=== PATIENT | male | born 1950 | race Caucasian/White ===

== ENCOUNTER → 2017-06-06 | Outpatient (CLI) | payer OTHER, BC ==
[~2017-06-06] MED LIST: AMOX500C3 PO; ASPI81TA28 PO; ATOR-24 PO; BYTI10 SC; CHOLCAP5 PO; CLC6 PO; FURO-85 PO; GLC/500 PO; GLIP-197 PO; HYDR-3419 PO; LISI-461 PO; MAGN400T6 PO; METF-384 PO; METO100T14 PO; MULT-506 PO; NTRGSL/4 UT; POTA-335 PO; PRLSR20 PO; SILD100T PO; VITA400C15 PO; WARF4TAB8 PO; lovenox
[2017-06-06 12:15] LABS: MEAN CELL VOLUME 96.3 fL (80-100); MEAN CORPUSCULAR HEMOGLOBIN 32.8 pg (25-34); MEAN CORPUSCULAR HGB CONC 34.1 g/dl (32-36); MEAN PLATELET VOLUME 10.2 fL (7.4-10.4); PLATELET COUNT 149 K/uL (130-400); RED BLOOD COUNT 4.05 M/uL (4.7-6.1); WHITE BLOOD COUNT 6.55 K/uL (4.8-10.8)
[2017-06-06 13:09] LABS: ALT/SGPT 25 U/L (12-78); AST/SGOT 23 U/L (15-37); BLOOD UREA NITROGEN 39 mg/dl (7-18); BUN/CREATININE RATIO 20.3 (10-20); CALCIUM 9.2 mg/dl (8.5-10.1); CARBON DIOXIDE 25 mmol/L (21-32); CHLORIDE 107 mmol/L (98-107); GLUCOSE 223 mg/dl (70-99); MAGNESIUM 2.1 mg/dl (1.8-2.4); SODIUM 138 mmol/L (136-145)
[2017-06-06 13:12] LABS: CHOLESTEROL 128 mg/dl (0-200); CHOLESTEROL/HDL RATIO 3.7; HDL CHOLESTEROL 35 mg/dl; LDL CHOLESTEROL CALCULATED 14 mg/dl; TRIGLYCERIDES 393 mg/dl (0-150); VERY LOW DENSITY LIPOPROT CALC 79 mg/dl
== END | disposition home or self-care (01) ==
LOC: C.LAB1850 10:14
PROVIDERS: ATTEND Internal Medicine Cardiovascular Disease
DX: I10 Essential (primary) hypertension (principal); I42.9 Cardiomyopathy, unspecified; Z79.01 Long term (current) use of anticoagulants; I25.10 Atherosclerotic heart disease of native coronary artery without angina pectoris; I50.22 Chronic systolic (congestive) heart failure; E83.42 Hypomagnesemia

== ENCOUNTER → 2017-10-26 | Outpatient (CLI) | payer OTHER, BC ==
[2017-10-26 12:31] LABS: HEMATOCRIT 40.6 % (42-52); HEMOGLOBIN 14.4 g/dL (14.0-18.0); MEAN CELL VOLUME 96.2 fL (80-100); MEAN CORPUSCULAR HEMOGLOBIN 34.1 pg (25-34); MEAN CORPUSCULAR HGB CONC 35.5 g/dl (32-36); MEAN PLATELET VOLUME 10.6 fL (7.4-10.4); PLATELET COUNT 146 K/uL (130-400); RED BLOOD COUNT 4.22 M/uL (4.7-6.1); RED CELL DISTRIBUTION WIDTH CV 13.2 % (11.5-14.5); WHITE BLOOD COUNT 5.95 K/uL (4.8-10.8)
[2017-10-26 16:05] LABS: BLOOD UREA NITROGEN 30 mg/dl (7-18); BUN/CREATININE RATIO 18.6 (10-20); CALCIUM 9.3 mg/dl (8.5-10.1); CARBON DIOXIDE 28 mmol/L (21-32); CHLORIDE 103 mmol/L (98-107); EstGFR CKD-E AfrAm 50.9; EstGFR CKD-E NON AfrAm 43.9; POTASSIUM 4.6 mmol/L (3.5-5.1); SODIUM 136 mmol/L (136-145)
[2017-10-26 16:05] LABS: GLUCOSE 158 mg/dl (70-99)
== END | disposition home or self-care (01) ==
LOC: C.RAD1850 10:50
DX: I25.10 Atherosclerotic heart disease of native coronary artery without angina pectoris (principal); I50.22 Chronic systolic (congestive) heart failure; I10 Essential (primary) hypertension

== ENCOUNTER → 2017-12-11 | Outpatient (CLI) | payer OTHER, BC ==
[~2017-12-11] MED LIST changes: -HYDR-3419 PO
--- NOTE | 2017-12-11 12:08 | DIAGNOSTIC IMAGING REPORT ---
CHEST 2 VIEWS ROUTINE HISTORY: 67 years-old Male R06.00 [id number] acute shortness of breath COMPARISON: Chest radiograph 10/26/2017 TECHNIQUE: PA and lateral views of the chest FINDINGS: Cardiac mediastinal and hilar silhouettes are within normal limits. Prior median sternotomy with prosthetic aortic valve. There is atherosclerosis of the aorta. No pneumothorax, pleural effusion, focal airspace consolidation or overt pulmonary edema. Degenerative changes noted within the shoulders and spine. Bones of the chest appear grossly intact. Multilevel endplate spurring about the thoracic spine. IMPRESSION: No acute process. The above report was generated using voice recognition software. It may contain grammatical, syntax or spelling errors. Electronically signed by: Javi López M.D. 12/11/2017 12:07 PM Dictated Date/Time: 12/11/2017 12:06 PM
[2017-12-11 13:37] LABS: ALBUMIN 3.4 gm/dl (3.4-5.0); ALT/SGPT 26 U/L (12-78); AST/SGOT 21 U/L (15-37); BLOOD UREA NITROGEN 30 mg/dl (7-18); CALCIUM 8.8 mg/dl (8.5-10.1); CARBON DIOXIDE 26 mmol/L (21-32); CREATININE 1.78 mg/dl (0.60-1.40); GLUCOSE 127 mg/dl (70-99); POTASSIUM 4.3 mmol/L (3.5-5.1); SODIUM 141 mmol/L (136-145)
[2017-12-11 13:45] LABS: ALKALINE PHOSPHATASE 59 U/L (45-117); TOTAL PROTEIN 6.8 gm/dl (6.4-8.2)
== END | disposition home or self-care (01) ==
LOC: C.RAD1850 11:41
PROVIDERS: ATTEND Physician Assistant
DX: R06.00 Dyspnea, unspecified (principal)

== ENCOUNTER → 2017-12-21 | Outpatient (CLI) | payer OTHER, BC ==
[2017-12-21 12:14] LABS: HEMATOCRIT 39.4 % (42-52); HEMOGLOBIN 13.9 g/dL (14.0-18.0); MEAN CELL VOLUME 96.3 fL (80-100); MEAN CORPUSCULAR HGB CONC 35.3 g/dl (32-36); MEAN PLATELET VOLUME 10.6 fL (7.4-10.4); PLATELET COUNT 149 K/uL (130-400); RED CELL DISTRIBUTION WIDTH CV 13.5 % (11.5-14.5); RED CELL DISTRIBUTION WIDTH SD 47.7 fL (36.4-46.3); WHITE BLOOD COUNT 5.86 K/uL (4.8-10.8)
[2017-12-21 12:24] LABS: ALT/SGPT 27 U/L (12-78); AST/SGOT 22 U/L (15-37); BLOOD UREA NITROGEN 35 mg/dl (7-18); CALCIUM 9.1 mg/dl (8.5-10.1); CARBON DIOXIDE 27 mmol/L (21-32); CREATININE 1.83 mg/dl (0.60-1.40); GLUCOSE 145 mg/dl (70-99); POTASSIUM 4.2 mmol/L (3.5-5.1); SODIUM 140 mmol/L (136-145)
== END | disposition home or self-care (01) ==
LOC: C.LAB1850 10:13
PROVIDERS: ATTEND Internal Medicine Cardiovascular Disease
DX: I11.0 Hypertensive heart disease with heart failure (principal); E78.5 Hyperlipidemia, unspecified; I25.10 Atherosclerotic heart disease of native coronary artery without angina pectoris; I50.22 Chronic systolic (congestive) heart failure; I42.9 Cardiomyopathy, unspecified; E83.42 Hypomagnesemia

== ENCOUNTER → 2018-01-04 | Outpatient (CLI) | payer OTHER, BC ==
[2018-01-04 15:38] LABS: BLOOD UREA NITROGEN 43 mg/dl (7-18); CALCIUM 9.4 mg/dl (8.5-10.1); CARBON DIOXIDE 27 mmol/L (21-32); CREATININE 2.07 mg/dl (0.60-1.40); GLUCOSE 82 mg/dl (70-99); POTASSIUM 4.3 mmol/L (3.5-5.1); SODIUM 139 mmol/L (136-145)
[2018-01-05 06:51] LABS: HEMOGLOBIN A1C 6.9 % (4.5-5.6)
== END | disposition home or self-care (01) ==
LOC: C.LAB1850 13:02
PROVIDERS: ATTEND Internal Medicine
DX: E11.22 Type 2 diabetes mellitus with diabetic chronic kidney disease (principal)